=== PATIENT | male | born 1955 | race Hispanic/Latino ===

== ENCOUNTER 2018-07-29 20:40 | Observation (INO) | payer OTHER, SELFPAY ==
[2018-07-29 21:53] LABS: Absolute Lymphocytes (CBC) 1.8 K/uL (0.7-4.9); Absolute Monocytes 0.7 K/uL (0.1-1.3); Absolute Neutrophil 4.7 K/uL (1.8-8.0); Basophils % 0.7 % (0-1.3); Eosinophils % 8.6 % (0-4.4); Hematocrit 42.6 % (39.6-49.0); Lymphocytes % 22.6 % (15.3-44.8); Monocytes % 8.4 % (3.3-12.3); RBC Red Blood Cell Count 4.65 M/uL (4.33-5.43)
[2018-07-29 21:55] LABS: Protime INR 1.03
[2018-07-29 22:12] LABS: Albumin 3.5 g/dL (3.4-5.0); Bilirubin Direct 0.1 mg/dL (0-0.2); Bilirubin Total 0.4 mg/dL (0.2-1.0); Magnesium 1.8 mg/dL (1.8-2.4); Potassium 3.7 mmol/L (3.5-5.1); Protein, Total 6.7 g/dL (6.4-8.2); Troponin (Emerg Dept Use Only) 0.08 ng/mL (0.0-0.045)
--- NOTE | 2018-07-29 22:48 | EDPHYS ---
Physician Documentation [facility] Name: Edgar Whitney Age: 63 yrs Sex: Male : 1955 Arrival Date: 07/29/2018 Time: 20:45 Bed 26 Private MD: ED Physician Landon Parnell HPI: 07/29 21:00 This 63 yrs old Male presents to ER via Ambulatory with complaints of Chest pm1 pain, Shoulder Pain, High Blood Pressure. 21:00 The patient or guardian reports chest pain that is located primarily in the anterior pm1 aspect of left upper chest. Onset: today, at 15:30. The pain radiates to the left arm, jaw, left back. Associated signs and symptoms: Pertinent negatives: abdominal pain, cough, dizziness, headache, nausea, palpitations, shortness of breath, vomiting. Duration: The patient or guardian reports multiple episodes, 3 total episodes since onset at 1530. Last episode 30 minutes prior to arrival. Modifying factors: The symptoms are alleviated by nothing. took 162 aspirin prior to arrival. the symptoms are aggravated by nothing. Severity of pain: in the emergency department the pain has resolved is a 0 / 10. The patient has not experienced similar symptoms in the past. The patient has not recently seen a physician. Historical: - Allergies: 20:51 No Known Allergies; aj1 - Home Meds: 20:51 blood pressure medicine [Active]; aj1 - PMHx: 20:51 Hypertension; aj1 - Immunization history:: Flu vaccine is up to date. - Social history:: Smoking status: Patient/guardian denies using tobacco. - Ebola Screening: : Patient denies travel to an Ebola-affected area in the 21 days before illness onset. ROS: 21:00 Constitutional: Negative for fever, chills, and weight loss, Eyes: Negative for injury, pm1 pain, redness, and discharge, ENT: Negative for injury, pain, and discharge, Neck: Negative for injury, pain, and swelling. 21:00 Respiratory: Negative for shortness of breath, cough, wheezing, and pleuritic chest pain, Abdomen/GI: Negative for abdominal pain, nausea, vomiting, diarrhea, and constipation. 21:00 : Negative for injury, bleeding, discharge, and swelling, MS/Extremity: Negative for injury and deformity, Skin: Negative for injury, rash, and discoloration, Neuro: Negative for headache, weakness, numbness, tingling, and seizure. 21:00 Cardiovascular: Positive for chest pain, Negative for edema, orthopnea, palpitations. 21:00 Back: Positive for of the left scapular area, Negative for injury or acute deformity, decreased range of motion, pain with movement. Exam: 21:00 Constitutional: This is a well developed, well nourished patient who is awake, alert, pm1 and in no acute distress. Head/Face: Normocephalic, atraumatic. Eyes: Pupils equal round and reactive to light, extra-ocular motions intact. Lids and lashes normal. Conjunctiva and sclera are non-icteric and not injected. Cornea within normal limits. Periorbital areas with no swelling, redness, or edema. ENT: Nares patent. No nasal discharge, no septal abnormalities noted. Tympanic membranes are normal and external auditory canals are clear. Oropharynx with no redness, swelling, or masses, exudates, or evidence of obstruction, uvula midline. Mucous membranes moist. Neck: Trachea midline, no thyromegaly or masses palpated, and no cervical lymphadenopathy. Supple, full range of motion without nuchal rigidity, or vertebral point tenderness. No Meningismus. Chest/axilla: Normal chest wall appearance and motion. Nontender with no deformity. No lesions are appreciated. Cardiovascular: Regular rate and rhythm with a normal S1 and S2. No gallops, murmurs, or rubs. Normal PMI, no JVD. No pulse deficits. Respiratory: Lungs have equal breath sounds bilaterally, clear to auscultation and percussion. No rales, rhonchi or wheezes noted. No increased work of breathing, no retractions or nasal flaring. Abdomen/GI: Soft, non-tender, with normal bowel sounds. No distension or tympany. No guarding or rebound. No evidence of tenderness throughout. 21:00 Back: No spinal tenderness. No costovertebral tenderness. Full range of motion. Skin: Warm, dry with normal turgor. Normal color with no rashes, no lesions, and no evidence of cellulitis. MS/ Extremity: Pulses equal, no cyanosis. Neurovascular intact. Full, normal range of motion. 21:00 NSR 21:00 Neuro: Orientation: is normal, Motor: is normal, moves all fours. Vital Signs: 20:51 BP 151 / 84; Pulse 82; Resp 18; Temp 98.4; Pulse Ox 97% on R/A; Weight 72.57 kg (R); aj1 Height 5 ft. 8 in. (172.72 cm) (R); Pain 0/10; 22:00 BP 126 / 91; Pulse 59; Resp 18; Pulse Ox 98% on R/A; rv 22:30 BP 125 / 81; Pulse 67; Resp 15; Pulse Ox 98% on R/A; rv 07/30 00:00 BP 115 / 81; Pulse 63; Resp 13 S; Pulse Ox 94% on R/A; rv 00:30 BP 127 / 82; Pulse 63; Resp 11; Pulse Ox 96% on R/A; rv 07/29 20:51 Body Mass Index 24.33 (72.57 kg, 172.72 cm) aj1 MDM: 07/29 20:57 Patient medically screened. pm1 22:46 Data reviewed: vital signs. Data interpreted: Pulse oximetry: on room air is 97 %. pm1 Interpretation: normal. Counseling: I had a detailed discussion with the patient and/or guardian regarding: the historical points, exam findings, and any diagnostic results supporting the discharge/admit diagnosis, lab results, radiology results, the need for further work-up and treatment in the hospital. 07/29 20:58 Order name: Basic Metabolic Panel pm1 07/29 20:58 Order name: CBC with Diff pm1 07/29 20:58 Order name: LFT's pm1 07/29 20:58 Order name: Magnesium; Complete Time: 22:37 pm1 07/29 20:58 Order name: NT PRO-BNP; Complete Time: 22:37 pm1 07/29 20:58 Order name: PT-INR; Complete Time: 22:37 pm1 07/29 20:58 Order name: Troponin (emerg Dept Use Only); Complete Time: 22:37 pm1 07/29 20:59 Order name: Basic Metabolic Panel; Complete Time: 22:37 EDIN 07/29 20:59 Order name: CBC with Automated Diff; Complete Time: 22:37 EDIN 07/29 20:59 Order name: Liver (Hepatic) Function; Complete Time: 22:37 EDMS 07/29 23:24 Order name: Basic Metabolic Panel EDIN 07/29 23:24 Order name: Basic Metabolic Panel EDIN 07/29 23:24 Order name: CBC with Automated Diff EDMS 07/29 23:24 Order name: CBC with Automated Diff EDMS 07/29 20:58 Order name: XRAY Chest (1 view) pm1 07/29 20:58 Order name: EKG; Complete Time: 20:59 pm1 07/29 23:24 Order name: CONS Physician Consult EDIN 07/29 23:24 Order name: Heart Healthy EDIN 07/29 23:24 Order name: Echo with Doppler EDMS 07/29 23:24 Order name: EKG Electrocardiogram EDMS 07/29 23:24 Order name: EKG Electrocardiogram EDIN 07/29 23:24 Order name: Lipid Profile EDIN 07/29 23:24 Order name: Lipid Profile EDIN 07/29 23:24 Order name: Troponin I EDIN 07/29 23:24 Order name: Troponin I EDIN 07/29 23:24 Order name: Troponin I EDIN 07/29 20:58 Order name: Cardiac monitoring; Complete Time: 00:41 pm1 07/29 20:58 Order name: EKG - Nurse/Tech; Complete Time: 00:41 pm1 07/29 20:58 Order name: IV Saline Lock; Complete Time: 00:41 pm1 07/29 20:58 Order name: Labs collected and sent; Complete Time: 00:41 pm1 07/29 20:58 Order name: O2 Per Protocol; Complete Time: 00:41 pm1 07/29 20:58 Order name: O2 Sat Monitoring; Complete Time: 00:41 pm1 Administered Medications: 22:40 Drug: Aspirin 162 mg Route: PO; rv 07/30 00:43 Follow up: Response: No adverse reaction rv 07/29 22:45 Drug: Lovenox 1 mg/kg Route: Sub-Q; Site: right lower abdomen; rv 07/30 00:43 Follow up: Response: No adverse reaction rv 07/29 22:45 Drug: Lopressor (metoprolol TARTRATE) 50 mg Route: PO; rv 07/30 00:42 Follow up: Response: No adverse reaction rv 00:41 CANCELLED (MD DISCRETION): Lopressor 5 mg IVP once; Hold for SBP <100 or HR <60. rv Disposition: 07:29 Co-signature as Attending Physician, Landon Parnell MD I agree with the assessment and devang plan of care. Disposition: 07/29/18 22:47 Hospitalization ordered by Bee Sosa for Inpatient Admission. Preliminary diagnosis is Non-ST elevation (NSTEMI) myocardial infarction. - Bed requested for Telemetry/MedSurg (Inpatient). - Status is Inpatient Admission. rv - Condition is Stable. - Problem is new. - Symptoms have improved. UTI on Admission? No Signatures: Dispatcher [employer] EDMS Emilie Carver RN RN aj1 Landon Parnell MD MD cha Garcia, Cindy, RN RN cg Coy Islas, DRIVER STARTING GATE DRIVER STARTING GATE pm1 James Goodson RN RN rv Corrections: (The following items were deleted from the chart) 07/29 23:33 22:47 Hospitalization Ordered by Bee Sosa MD for Inpatient Admission. Preliminary cg diagnosis is Non-ST elevation (NSTEMI) myocardial infarction. Bed requested for Telemetry/MedSurg (Inpatient). Status is Inpatient Admission. Condition is Stable. Problem is new. Symptoms have improved. UTI on Admission? No. pm1 07/30 00:41 07/29 22:43 Lopressor 5 mg IVP once; Hold for SBP <100 or HR <60. ordered. pm1 rv 07/30 00:48 07/29 23:33 07/29/2018 22:47 Hospitalization Ordered by Bee Sosa MD for Inpatient rv Admission. Preliminary diagnosis is Non-ST elevation (NSTEMI) myocardial infarction. Bed requested for Telemetry/MedSurg (Inpatient). Status is Inpatient Admission. Condition is Stable. Problem is new. Symptoms have improved. UTI on Admission? No. cg
--- NOTE | 2018-07-29 22:48 | ER ---
Nurse's Notes [facility] Name: Edgar Whitney Age: 63 yrs Sex: Male : 1955 Arrival Date: 07/29/2018 Time: 20:45 Bed 26 Private MD: Diagnosis: Non-ST elevation (NSTEMI) myocardial infarction Presentation: 07/29 20:48 Presenting complaint: Patient states: Around 3 this afternoon the left side of his aj1 chest, his left upper back and his left arm started hurting, then he had another episode of the same pain 2 hours ago, and then it came back again 20 minutes ago. Patient reports that the pain last approximately 2 minutes when it hits. Transition of care: patient was not received from another setting of care. Onset of symptoms was July 29, 2018 at 15:00. Risk Assessment: Do you want to hurt yourself or someone else? Patient reports no desire to harm self or others. Initial Sepsis Screen: Does the patient meet any 2 criteria? No. Patient's initial sepsis screen is negative. Does the patient have a suspected source of infection? No. Patient's initial sepsis screen is negative. Care prior to arrival: None. 20:48 Method Of Arrival: Ambulatory aj1 20:48 Acuity: MCKAYLA 3 aj1 Triage Assessment: 20:51 General: Appears in no apparent distress. comfortable, Behavior is calm, cooperative, aj1 appropriate for age. Pain: Denies pain. Neuro: Level of Consciousness is awake, alert, obeys commands. Cardiovascular: Reports chest pain, that has now resolved Patient's skin is warm and dry. Respiratory: Airway is patent Respiratory effort is even, unlabored, Respiratory pattern is regular, symmetrical. Historical: - Allergies: 20:51 No Known Allergies; aj1 - Home Meds: 20:51 blood pressure medicine [Active]; aj1 - PMHx: 20:51 Hypertension; aj1 - Immunization history:: Flu vaccine is up to date. - Social history:: Smoking status: Patient/guardian denies using tobacco. - Ebola Screening: : Patient denies travel to an Ebola-affected area in the 21 days before illness onset. Screenin/14 00:35 Abuse screen: Denies threats or abuse. Denies injuries from another. Nutritional rv screening: No deficits noted. Tuberculosis screening: No symptoms or risk factors identified. Fall Risk None identified. Assessment: 07/29 21:00 General: Appears in no apparent distress. comfortable, Behavior is calm, cooperative. rv 21:00 Pain: Denies pain. Neuro: Level of Consciousness is awake, alert, obeys commands, rv Oriented to person, place, time, situation. Cardiovascular: Capillary refill < 3 seconds. Respiratory: Airway is patent. GI: No signs and/or symptoms were reported involving the gastrointestinal system. : No signs and/or symptoms were reported regarding the genitourinary system. EENT: No signs and/or symptoms were reported regarding the EENT system. Derm: Skin is intact. Musculoskeletal: No signs and/or symptoms reported regarding the musculoskeletal system. Vital Signs: 20:51 BP 151 / 84; Pulse 82; Resp 18; Temp 98.4; Pulse Ox 97% on R/A; Weight 72.57 kg (R); aj1 Height 5 ft. 8 in. (172.72 cm) (R); Pain 0/10; 22:00 BP 126 / 91; Pulse 59; Resp 18; Pulse Ox 98% on R/A; rv 22:30 BP 125 / 81; Pulse 67; Resp 15; Pulse Ox 98% on R/A; rv 07/30 00:00 BP 115 / 81; Pulse 63; Resp 13 S; Pulse Ox 94% on R/A; rv 00:30 BP 127 / 82; Pulse 63; Resp 11; Pulse Ox 96% on R/A; rv 07/29 20:51 Body Mass Index 24.33 (72.57 kg, 172.72 cm) aj1 ED Course: 07/29 20:45 Patient arrived in ED. ag3 20:50 Triage completed. aj1 20:51 Arm band placed on. aj1 20:57 Coy Islas NP is PHCP. pm1 20:57 Landon Parnell MD is Attending Physician. pm1 21:24 XRAY Chest (1 view) In Process Unspecified. EDMS 21:36 Inserted saline lock: 18 gauge in right antecubital area, using aseptic technique. lt1 21:36 Initial lab(s) drawn, by ct, sent to lab. lt1 21:36 EKG done, by ED staff, reviewed by Coy Islas NP. lt1 22:47 Bee Sosa MD is Hospitalizing Provider. pm1 07/30 00:37 Patient has correct armband on for positive identification. Bed in low position. Call rv light in reach. Side rails up X 1. program advocate on. Pulse ox on. NIBP on. 00:39 No provider procedures requiring assistance completed. Patient admitted, IV remains in rv place. intact. Administered Medications: 07/29 22:40 Drug: Aspirin 162 mg Route: PO; rv 07/30 00:43 Follow up: Response: No adverse reaction rv 07/29 22:45 Drug: Lovenox 1 mg/kg Route: Sub-Q; Site: right lower abdomen; rv 07/30 00:43 Follow up: Response: No adverse reaction rv 07/29 22:45 Drug: Lopressor (metoprolol TARTRATE) 50 mg Route: PO; rv 07/30 00:42 Follow up: Response: No adverse reaction rv 00:41 CANCELLED (MD DISCRETION): Lopressor 5 mg IVP once; Hold for SBP <100 or HR <60. rv Outcome: 07/29 22:47 Decision to Hospitalize by Provider. pm1 07/30 00:39 Admitted to Med/surg accompanied by tech, via wheelchair, room 221, with chart, Report rv called to ALEXSANDRA HERNANDEZ Condition: good Instructed on the need for admit. 00:48 Patient left the ED. rv Signatures: Dispatcher [employer] EDEmilie Anguiano, RN RN aj1 Coy Islas, AMMONIA DISTILLER AMMONIA DISTILLER pm1 James Goodson RN RN rv Elizabeth Peck ag3 Guadalupe Murrieta lt1
[2018-07-29] MEDS ORDERED: ASPIRIN 81 MG CHEWABLE TABLET ONE (23:09)
[2018-07-29] MEDS ORDERED: ENOXAPARIN 80 MG/0.8 ML SQ ONE (23:10)
[2018-07-29] MEDS ORDERED: METOPROLOL TAR 50 MG TAB ONE (23:10)
[2018-07-29] MEDS ORDERED: METOPROLOL TARTRATE 5 MG/5 ML INJ IV ONE (23:10)
[2018-07-29] MEDS ORDERED: MORPHINE 4 MG/ML SYR IV PRN (23:20)
[2018-07-29] MEDS ORDERED: ALPRAZOLAM 0.25 MG TABLET PO PRN (23:20)
[2018-07-29] MEDS ORDERED: ACETAMINOPHEN 500 MG TAB PO PRN (23:20)
[2018-07-30] MEDS: METOPROLOL TAR 25 MG TAB PO SCH ×2 (05:09→17:03)
[2018-07-30 05:55] LABS: Absolute Lymphocytes (CBC) 2.2 K/uL (0.7-4.9); Absolute Monocytes 0.5 K/uL (0.1-1.3); Absolute Neutrophil 3.3 K/uL (1.8-8.0); Basophils % 0.9 % (0-1.3); Eosinophils % 9.8 % (0-4.4); Hematocrit 42.4 % (39.6-49.0); Lymphocytes % 32.6 % (15.3-44.8); MPV 10.2 fL (7.6-11.3); Monocytes % 7.7 % (3.3-12.3); RBC Red Blood Cell Count 4.64 M/uL (4.33-5.43)
[2018-07-30 06:12] LABS: Troponin I 0.12 ng/mL (0.0-0.045)
--- NOTE | 2018-07-30 07:00 | RAD REPORT ---
EXAM DESCRIPTION: RAD - Chest Single View - 07/29/2018 9:24 pm CLINICAL HISTORY: Left-sided chest pain COMPARISON: None. TECHNIQUE: AP portable chest image was obtained 2122 hours . FINDINGS: Lungs are clear. Small granuloma noted. Heart and vasculature are normal. No measurable pl eural effusion and no pneumothorax. No acute bony abnormality seen. No acute aortic findings suspecte d. IMPRESSION: No acute cardiopulmonary process.
[2018-07-30] MEDS: ASPIRIN EC 81 MG TAB PO SCH (09:00)
[2018-07-30] MEDS ORDERED: REGADENOSON 0.4 MG/5 ML SYR IV ONE (09:29)
[2018-07-30 09:45] LABS: Urine Appearance CLEAR; Urine Bilirubin NEGATIVE (NEG); Urine Blood NEGATIVE (NEG); Urine Color YELLOW; Urine Glucose NEGATIVE (NEG); Urine Protein NEGATIVE (NEG); Urine Urobilinogen 0.2 mg/dL (0.2-1.0); Urine pH 5.5 (5.0-7.0)
[2018-07-30 09:46] LABS: Urine Microscopic Reflex NO UMIC
--- NOTE | 2018-07-30 10:23 | CON ---
Chief Complaint: Chest pain. History Of Present Illness: Mr. Whitney started having chest pain yesterday. He has had about 4 spel ls, each one seemed to be preceded by eating or drinking something and started radiating to his left arm, and would go away after a few minutes. He came to the ER where EKGs are normal, and cardiac enz ymes are abnormal. Mr. Whitney has eaten breakfast, so unless it is an emergency, he would not be a c andidate for a cardiac cath right this minute. He does not use tobacco. He knows he has high choles terol, but does not take cholesterol medicines. Denies any history of diabetes. He takes blood pres sure medicines. Medicines he takes we do not know. He says he has not actually been taking his medi cines anyway, so I think he is actually on nothing. Physical Examination: General: He is 5 feet 8 inches, 165 pounds. HEENT: Normal. Carotids: No bruit. Lungs: Clear. Cardiac Exam: Normal. Laboratory Data: EKG normal. He has a troponin of 0.08 and 0.12. Total cholesterol is 198, LDL cho lesterol 106, triglycerides 285. Impression: The patient has chest pain that is at least suggestive. I think we can do a pharmacolog ic nuclear stress test, not a treadmill stress test. If there is any sign of problems, we will do a heart catheterization tomorrow. Otherwise, initiation of therapy with beta- blockers, aspirin, and Plavix, and p.r.n. nitrates would be useful to help control his symptoms. SH/MODL Voice ID: [id number] Report ID: [id number]
[2018-07-30] MEDS ORDERED: ENOXAPARIN 80 MG/0.8 ML SQ SCH (12:00)
--- NOTE | 2018-07-30 13:26 | ECHO ---
HEIGHT: 5 ft 8 in WEIGHT: 165 lb 14.4 oz DATE OF STUDY: 07/30/[address]: Bee Sosa MD 2-DIMENSIONAL: YES M.MODE: YES DOPPLER: YES COLOR FLOW: YES TDS: NO PORTABLE: NO DEFINITY: NO BUBBLE STUDY: NO DIAGNOSIS: CHEST PAIN CARDIAC HISTORY: CATHERIZATION: NO SURGERY: NO PROSTHETIC VALVE: NO PACEMAKER: NO MEASUREMENTS (cm) DIASTOLIC (NORMALS) SYSTOLIC (NORMALS) IVSd 1.0 (0.6-1.2) LA Diam (1.9-4.0) LVEF 76% LVIDd 4.6 (3.5-5.7) LVIDs 2.6 (2.0-3.5) %FS 44% LVPWd 0.9 (0.6-1.2) Ao Diam 3.1 (2.0-3.7) 2 DIMENSIONAL ASSESSMENT: RIGHT ATRIUM: NORMAL LEFT ATRIUM: NORMAL RIGHT VENTRICLE: NORMAL LEFT VENTRICLE: NORMAL TRICUSPID VALVE: NORMAL MITRAL VALVE: MITRAL VALVE PROLAPSE PULMONIC VALVE: NORMAL AORTIC VALVE: NORMAL PERICARDIAL EFFUSION: NONE AORTIC ROOT: NORMAL LEFT VENTRICULAR WALL MOTION: NORMAL DOPPLER/COLOR FLOW: MILD MITRAL VALVE PROLAPSE WITH NO MITRAL REGURGITATION. MILD TRICUSPID REGURGITATION. NORMAL RIGHT VENTRICULAR SYSTOLIC PRESSURE. COMMENTS: NORMAL LEFT VENTRICULAR EJECTION FRACTION. MITRAL VALVE PROLAPSE. MILD TRICUSPID REGURGITATION. TECHNOLOGIST: Sarabjit SAMSON
--- NOTE | 2018-07-30 15:17 | RAD REPORT ---
EXAM DESCRIPTION: NM - Rest Stress Cardiac Imaging - 07/30/2018 2:41 pm CLINICAL HISTORY: Chest pain COMPARISON: None. TECHNIQUE: The patient was administered 10.2 mCi of Tc 99m Sestamibi prior to resting SPECT imaging of the heart. The patient was then administered 32.1 mCi of Tc 99m Sestamibi following exercise or ph armacologic stress. Multiplanar SPECT images were reviewed. FINDINGS: The end diastolic volume is 87 ml, the end systolic volume is 33 ml, and the ejection frac tion is 63 %. Small focus of diminished activity is seen anteroseptal wall near the apex on stress imaging. This is absent or less pronounced on rest imaging. A larger fixed defect is seen along the inferior wall ext ending from the base into the inferoseptal wall at the apex. IMPRESSION: Anteroseptal defect at the apex suspicious for stress ischemia. Fixed defect inferior wall from scarring, attenuation artifact or a combination. Normal ventricular volumes and ejection fraction.
--- NOTE | 2018-07-30 17:24 | TREADPHA ---
DX: CHEST PAIN Date of Study: 07/30/2018 Ht: 5 8 Wt: 165 lb 14.4 oz Consulting Physician: SOWMYA MEDICATIONS: TYLENOL, XANAX, ASPIRIN, LOPRESSOR, LOVENOX. HISTORY: 63 YEAR MALE. COMPLAINTS OF CHEST PAIN. HISOTRY: HYPERTENSION. PHYSICIAL EXAMINATION: RESTING B.P.: 120/80 RESTING H.R.: 58 RESTING EKG: SINUS BRADYCARDIA OTHERWISE NORMAL. PROTOCOL: LEXISCAN EXERCISE TIME: 3:30 B.P. AT PEAK STRESS: 122/73 IMPRESSION: LEXISCAN INJECTED, CARDIOLITE INJECTED PER PROTOCOL. SEE NUCLEAR MEDICINE REPORT. NO SUPRAVENTRICULAR TACHYCARDIA. NO VENTRICULAR TACHYCARDIA. NO PREMATURE VENTRICULAR COMPLEXS. DENIED CHEST PAIN. NON-DIAGNOSTIC ELECTROCARDIOGRAM WITH LEXISCAN STRESS.
--- NOTE | 2018-07-30 23:08 | P.HP ---
Certification for Inpatient Patient admitted to: Observation With expected LOS: <2 Midnights Patient will require the following post-hospital care: None Practitioner: I am a practitioner with admitting privileges, knowledge of patient current condition, hospital course, and medical plan of care. Services: Services provided to patient in accordance with Admission requirements found in Title 42 Section 412.3 of the Code of Federal Regulations Patient History Date of Service: 07/29/18 Reason for admission: chest pain rule out acute coronary syndrome History of Present Illness: Patient is a 63-year-old gentleman who came into the hospital with chest pain. Pain was mainly sternal region. Patient had radiation to the neck and the left arm. Patient was admitted to the hospital for further workup. Patient 's initial troponins were also elevated. EKGs not revealing acute changes. Patient will be monitored for further evaluation. Allergies No Known Allergies Allergy (Verified 07/30/18 01:05) Home Medications: Pravastatin Sodium 40 mg PO BEDTIME 07/30/18 hydroCHLOROthiazide [Hydrochlorothiazide] 25 mg PO DAILY 07/30/18 - Past Medical/Surgical History Has patient received pneumonia vaccine in the past: Yes Diabetic: No -: Hypertension Past Surgical History: Patient denies surgical history - Family History Mother Medical History: Cancer Notes: Lung - Social History Smoking Status: Never smoker Alcohol use: No CD- Drugs: No Caffeine use: Yes Place of Residence: Home Review of Systems 10-point ROS is otherwise unremarkable Physical Examination - Vital Signs Temperature: 97.7 F Blood Pressure: 134/77 Pulse: 60 Respirations: 16 Pulse Ox (%): 98 - Physical Exam General: Alert, In no apparent distress, Oriented x3 HEENT: Atraumatic, PERRLA, Mucous membr. moist/pink, EOMI, Sclerae nonicteric Neck: Supple, 2+ carotid pulse no bruit, No LAD, Without JVD or thyroid abnormality Respiratory: Clear to auscultation bilaterally, Normal air movement Cardiovascular: Regular rate/rhythm, Normal S1 S2 Gastrointestinal: Normal bowel sounds, Soft and benign, Non-distended, No tenderness Musculoskeletal: No clubbing, No swelling, No tenderness Integumentary: No rashes Neurological: Normal gait, Normal speech, Normal strength at 5/5 x4 extr, Normal tone, Sensation intact, Cranial nerves 3-12 intact, Normal affect Lymphatics: No axilla or inguinal lymphadenopathy Assessment & Plan - Problems (Diagnosis) (1) Chest pain, rule out acute myocardial infarction Current Visit: Yes Status: Acute (2) Angina at rest Current Visit: Yes Status: Acute - Plan 1. Serial troponins and EKG 2. Cardiology consultation 3. Echocardiogram and inpatient stress test(pending cardiology evaluation) 4. Anti-platelet therapy, anti coagulation, beta-ramya, statin, and O2 as needed 5. IV morphine for pain 6. Nitro p.r.n. Discharge Plan: Home Plan to discharge in: Greater than 2 days - Advance Directives Does patient have a Living Will: No Does patient have a Durable POA for Healthcare: No - Code Status/Comfort Care Code Status Assessed: Yes Code Status: Full Code Critical Care: No Time Spent Managing PTS Care (In Minutes): 45
[2018-07-31] MEDS: METOPROLOL TAR 25 MG TAB PO SCH ×2 (05:33→17:37)
[2018-07-31] MEDS ORDERED: HEPA 1000U/500MLS 1,000 UNIT/500 ML BAG IV ONE (07:07)
[2018-07-31] MEDS ORDERED: LIDOCAINE 1% MPF 30 ML VIAL ONE (07:07)
[2018-07-31] MEDS ORDERED: MIDAZOLAM HCL 2 MG/2 ML INJ ONE (07:41)
[2018-07-31] MEDS ORDERED: NA CHLORIDE 0.9% 500 ML ONE (07:41)
[2018-07-31] MEDS ORDERED: ATROPINE SULF 1 MG/10 ML SYR IV ONE (07:42)
[2018-07-31] MEDS ORDERED: FENTANYL CITR 100 MCG/2 ML ONE (07:42)
[2018-07-31] MEDS ORDERED: NA CHLORIDE 0.9% 50 ML ONE (07:42)
[2018-07-31] MEDS ORDERED: NITROGLYCERIN 100 MCG/ML SYR (for cath lab use only) IV ONE (08:08)
[2018-07-31] MEDS ORDERED: NITROGLYCERIN/D5W 25 MG/250 ML BTL IV ONE (08:08)
[2018-07-31] MEDS ORDERED: ASPIRIN 325 MG TAB ONE (08:22)
[2018-07-31] MEDS ORDERED: PRASUGREL (EFFIENT) 10 MG TAB ONE (08:23)
[2018-07-31] MEDS: ASPIRIN EC 81 MG TAB PO SCH (08:36)
--- NOTE | 2018-07-31 14:21 | P.PN ---
Subjective Date of Service: 07/31/18 Chief Complaint: chest pain rule out acute coronary syndrome s/p cardiac cath today ,result pending ,pt had stress test yesterday which was positive for stress ischemia pt denied chest pain or SOB today f/up cardiology recommendation Review of Systems 10-point ROS is otherwise unremarkable Physical Examination - Vital Signs Temperature: 97.0 F Blood Pressure: 106/74 Pulse: 56 Respirations: 18 Pulse Ox (%): 98 - Physical Exam General: Alert, In no apparent distress, Oriented x3 HEENT: Atraumatic, Normocephalic Neck: Supple Respiratory: Clear to auscultation bilaterally, Normal air movement Cardiovascular: No edema, Normal pulses, Regular rate/rhythm, Normal S1 S2 Gastrointestinal: Normal bowel sounds, Soft and benign, Non-distended Musculoskeletal: No swelling, No erythema, No tenderness Integumentary: No rashes, No erythema Neurological: Normal strength at 5/5 x4 extr Assessment And Plan - Current Problems (Diagnosis) (1) Angina at rest Current Visit: Yes Status: Acute (2) Chest pain Current Visit: Yes Status: Acute (3) Chest pain, rule out acute myocardial infarction Current Visit: Yes Status: Acute (4) Hypertension Current Visit: No Status: Chronic - Plan chest pain R/O CAD serial CE and EKG ,CE were +ve ,EKG w as normal s/p stress test which showed stress induced ischemia cardiac cath 07/31/18 ,report pending f/up with cardiology ASA B ramya morphine statin nitro prn Discharge Plan: Home Plan to discharge in: 48 Hours
[2018-08-01 04:41] LABS: Absolute Lymphocytes (CBC) 1.8 K/uL (0.7-4.9); Absolute Monocytes 0.6 K/uL (0.1-1.3); Absolute Neutrophil 4.8 K/uL (1.8-8.0); Basophils % 0.8 % (0-1.3); Hematocrit 41.6 % (39.6-49.0); Lymphocytes % 22.5 % (15.3-44.8); MPV 10.3 fL (7.6-11.3); RBC Red Blood Cell Count 4.56 M/uL (4.33-5.43)
[2018-08-01 04:50] LABS: Potassium 4.4 mmol/L (3.5-5.1)
[2018-08-01] MEDS: METOPROLOL TAR 25 MG TAB PO SCH (06:00)
[2018-08-01] MEDS: ASPIRIN EC 81 MG TAB PO SCH (08:36)
--- NOTE | 2018-08-01 11:28 | OP ---
Date of Procedure: 07/31/2018 Surgeon: Juan Kwon MD Lye Boiler: Erica Navarro. Procedures: Left heart catheterization, selective coronary arteriogram, left ventriculogram, angiopl asty, and stent of the mid left anterior descending. History Of Present Illness: Mr. Deal is a 63-year-old Latin-Congolese male admitted to Dr. Alvarado on 07/29/2018, had an abnormal stress test on 07/30/2018. Description Of Procedure: He was brought into the catheterization lab on 07/31/2018 where he was pre pped and draped in the routine sterile fashion. He was given 2 mg of Versed and 25 mg of fentanyl fo r sedation. A 6-Croatian sheath was introduced in the right common femoral artery successfully. Angio graphy there was normal. An Angio-Seal was used to close the case. A 6-Croatian catheter of Teresa w as used to do the coronary angiography. He had a normal RCA. He had a dual ostium for the circumfle x, which was normal, and LAD which showed a 99% stenosis right after the first diagonal, extending to the second diagonal. Left ventriculogram was normal ejection fraction without any wall motion abnor malities. An XB 3.5 LAD with side holes was used as a guide to cannulate the LAD selectively. A Cou gar wire was used to cross the lesion. The lesion was pre-dilated with an Emerge balloon 2.5 x 15 nelson ccessfully. There seemed to be a dissection at the site of the inflation. A 2.5 x 20 Synergy stent was deployed successfully with 0% residual and MARIA R-3 flow. No thrombus. The patient received Angio max during the procedure. He also received aspirin and 60 mg of Effient after the procedure was done . There were no complications. Blood Loss: 5 cc. Total conscious sedation was 45 minutes. Final Diagnosis: Coronary artery disease, status post successful angioplasty and stent of the mid le ft anterior descending. NB/MODL Voice ID: [id number] Report ID: [id number]
--- NOTE | 2018-08-01 12:45 | P.DS ---
Admission Date: 07/29/18 Discharge Date: 08/01/18 Disposition: ROUTINE DISCHARGE Discharge Condition: GOOD Reason for Admission: chest pain rule out acute coronary syndrome - Problems (1) Angina at rest Current Visit: Yes Status: Acute (2) Chest pain Current Visit: Yes Status: Acute (3) Chest pain, rule out acute myocardial infarction Current Visit: Yes Status: Acute (4) Hypertension Current Visit: No Status: Chronic Brief History of Present Illness: see hc Hospital Course: 63 years or murmurs breasts medical history of hypertension admitted for chest pain to rule out coronary artery disease, the patient was seen by Cardiology and had stress test which showed ischemia and had Cardiac cath with stent in mid LAD On the day of discharge, patient was cleared by Cardiology and patient denied any chest pain, palpitation, shortness of breath, dyspnea on exertion , or any other complaints. Patient is a clinically and hemodynamically stable for discharge. Patient was managed for chest pain R/O CAD serial CE and EKG ,CE were +ve ,EKG w as normal s/p stress test which showed stress induced ischemia cardiac cath 07/31/18 f/up with cardiology ASA B ramya morphine statin nitro prn Discharge instructions Diet heart healthy diet Activity as tolerated Follow-up with PCP for continuation of care Follow-up with Cardiology Dr. Mills Discharge medications Aspirin 81 mg daily Lipitor 80 mg daily Plavix 75 mg daily Metoprolol Hydrochlorothiazide Vital Signs/Physical Exam: Temp Pulse Resp BP Pulse Ox 97.8 F 61 18 114/60 98 08/01/18 08:00 08/01/18 08:00 08/01/18 08:00 08/01/18 08:00 08/01/18 08:00 Laboratory Data at Discharge: WBC 7.8 K/uL (4.3-10.9) D 08/01/18 03:47 Hgb 14.4 g/dL (13.6-17.9) 08/01/18 03:47 Hct 41.6 % (39.6-49.0) 08/01/18 03:47 Plt Count 233 K/uL (152-406) 08/01/18 03:47 PT 12.1 SECONDS (9.5-12.5) 07/29/18 21:35 INR 1.03 07/29/18 21:35 Sodium 145 mmol/L (136-145) 08/01/18 03:47 Potassium 4.4 mmol/L (3.5-5.1) 08/01/18 03:47 BUN 18 mg/dL (7-18) 08/01/18 03:47 Creatinine 0.97 mg/dL (0.55-1.3) 08/01/18 03:47 Glucose 104 mg/dL (74-106) 08/01/18 03:47 Magnesium 1.8 mg/dL (1.8-2.4) 07/29/18 21:35 Total Bilirubin 0.4 mg/dL (0.2-1.0) 07/29/18 21:35 AST 21 U/L (15-37) 07/29/18 21:35 ALT 34 U/L (12-78) 07/29/18 21:35 Alkaline Phosphatase 95 U/L (45-117) 07/29/18 21:35 Troponin I 0.10 ng/mL (0.0-0.045) H 07/30/18 14:38 Triglycerides 197 mg/dL (<150) H 08/01/18 03:47 Cholesterol 203 mg/dL (<200) H 08/01/18 03:47 HDL Cholesterol 37 mg/dL (40-60) L 08/01/18 03:47 Cholesterol/HDL Ratio 5.49 08/01/18 03:47 Home Medications: hydroCHLOROthiazide [Hydrochlorothiazide] 25 mg PO DAILY 07/30/18 Aspirin [Adult Low Dose Aspirin EC] 81 mg PO DAILY #30 tablet. 08/01/18 Atorvastatin Calcium [Lipitor] 80 mg PO DAILY #30 tablet 08/01/18 Clopidogrel Bisulfate [Plavix] 75 mg PO DAILY #30 tablet 08/01/18 Metoprolol Succinate [Toprol Xl] 50 mg PO DAILY #30 tab 08/01/18 New Medications: Aspirin [Adult Low Dose Aspirin EC] 81 mg PO DAILY #30 tablet. Atorvastatin Calcium [Lipitor] 80 mg PO DAILY #30 tablet Clopidogrel Bisulfate [Plavix] 75 mg PO DAILY #30 tablet Metoprolol Succinate [Toprol Xl] 50 mg PO DAILY #30 tab Patient Discharge Instructions: Please f.u with PCP and Cardioloyg in 2 week post discharge. New medication. Metoprolol. ASA. plavix Diet: Regular Activity: Ad wes Followup: Juan Kwon MD [ACTIVE - CAN ADMIT] - Florencio Mills MD [ACTIVE - CAN ADMIT] - 1 Week
--- NOTE | 2018-08-01 13:34 | PN ---
Date of Progress Note: 08/01/2018 Subjective: Mr. Whitney had an angioplasty and stent of his LAD yesterday after coming in with chest pain and abnormal stress test. Overnight, he did very well. He denied any chest pain. He remained in sinus rhythm. His examination is normal. He has no rales. No heart murmurs. No edema. His elmer in is dry and intact without any hematoma or ecchymosis. We will plan to send him home today on aspi rin, Toprol, Lipitor, and Plavix. He can go back to work next week. He has an appointment with a de ntist on Friday for a crown. I cleared him for this, but he was warned not to stop the Plavix then o r at least for 6 months. He will come see me in the office in 2 weeks. CELESTE/BHARATH Voice ID: [id number] Report ID: [id number]
== END 2018-08-01 13:16 | disposition home or self-care (01) ==
LOC: ER 20:40 → ERHOLD 23:20 → 2ND 07-30 00:32
PROVIDERS: ADMIT Hospitalist; ATTEND Hospitalist
PROC: 4A023N7 Measurement of Cardiac Sampling and Pressure, Left Heart, Percutaneous Approach (ICD-10-PCS; principal; 2018-07-31)
PROC: B201YZZ Plain Radiography of Multiple Coronary Arteries using Other Contrast (ICD-10-PCS; 2018-07-31)
PROC: B205YZZ Plain Radiography of Left Heart using Other Contrast (ICD-10-PCS; 2018-07-31)
PROC: 027034Z Dilation of Coronary Artery, One Artery with Drug-eluting Intraluminal Device, Percutaneous Approach (ICD-10-PCS; 2018-07-31)
DX: I25.119 Atherosclerotic heart disease of native coronary artery with unspecified angina pectoris (principal); I10 Essential (primary) hypertension
CPT/HCPCS: 36415; 71045; 78452; 80048; 80061; 80076; 81003; 83735; 83880; 84484; 85025; 85347; 85610; 87086; 87088; 92928; 93005; 93017; 93306; 93458; 96372; 99285; A9500; C1725; C1760; C1877; C1893; G0378; J0583; J1650; J2250; J2785; J3010